=== PATIENT | female | born 1975 | race African-American/Black ===

== ENCOUNTER 2017-01-21 11:25 | Emergency (ER) | payer OTHER ==
[~2017-01-21] VITALS: Ht 162.6 cm; Wt 70.8 kg
[~2017-01-21 11:25] MED LIST: ADULT LOW DOSE81 MG PO; ALBUTEROL0.09 MG/A1 INH; ALBUTEROL0.63 MG/3 INH/SOL; AMOXIL500 MG PO; ARIPIPRAZOLE5 M1 PO; ATORVASTATIN CA80 M1 PO; CIPRO 500MG (E500 MG PO; CIPRO250 M1 PO; CYMBALTA 20 MG20 MG PO; CYMBALTA60 MG PO; FLOVENT HF0.22 MG/Ac INH; FLUTICASON0.05 MG/A2 NAS; HORIZANT600 M1 PO; MIRAPEX 0.25M0.25 MG PO; NAPROXEN D/R500 MG PO; NEURONTIN300 MG PO; PROPRANOLOL HCL10 MG PO; PYRIDIUM100 MG PO; TRAMADOL50 MG PO; TRAZODONE HCL100 M1 PO; TYLENOL #31 TAB PO; VICODIN5-300 PO; XARELTO20 M2 PO; ZOFRAN ODT4 M1 SL; ZOFRAN4 M2 PO; ZOLPIDEM TARTRA10 MG PO
[2017-01-21] MEDS ORDERED: SERTRALINE HCL100 MG PO (12:23)
[2017-01-21] MEDS ORDERED: ARIPIPRAZOLE5 M1 PO (12:23)
[2017-01-21] MEDS ORDERED: HYDROXYZINE HCL25 M2 PO (12:24)
[2017-01-21] MEDS ORDERED: HORIZANT600 M1 PO (12:24)
[2017-01-21] MEDS ORDERED: CLONIDINE HCL0.1 MG PO (12:25)
[2017-01-21] MEDS ORDERED: REXULTI PO (12:25)
--- NOTE | 2017-01-21 12:56 | ED GI/GU/ABDOMINAL COMPLAINT ---
History of Present Illness General Chief Complaint: General Adult Stated Complaint: ABD PAIN,MUSCLE SPASMS Source: patient, family Exam Limitations: no limitations Vital Signs & Intake/Output Vital Signs & Intake/Output Vital Signs Date Time Temp Pulse Resp B/P Pulse O2 O2 Flow FiO2 Ox Delivery Rate 01/21 1409 64 134/80 01/21 1409 97.0 65 18 130/89 98 Room Air 01/21 1135 96.9 62 16 124/81 98 Room Air Allergies Coded Allergies: Penicillins (Intermediate, RASH/HIVES 07/24/16) latex (ITCHING 07/24/16) Reconcile Medications Aripiprazole 5 MG TABLET 1 TAB PO DAILY MENTAL HEALTH (Reported) Aspirin (Adult Low Dose Aspirin EC) 81 MG TABLET.DR 1 TAB PO DAILY HEART HEALTH (Reported) Brexpiprazole (Rexulti) 0.5 MG TABLET 1 TAB PO DAILY MENTAL HEALTH (Reported) Clonidine HCl 0.1 MG TABLET 1 TAB PO BID PRN UNKNOWN (Reported) Gabapentin Enacarbil (Horizant) 600 MG TABLET.ER 1 TAB PO QPM UNKNOWN ( Reported) Hydroxyzine HCl 25 MG TABLET 1 TAB PO BID UNKNOWN (Reported) Rivaroxaban (Xarelto) 20 MG TABLET 1 TAB PO DAILY BLOOD THINNER (Reported) with food Sertraline HCl 100 MG TABLET 1 TAB PO DAILY MENTAL HEALTH (Reported) Triage Note: PT STATES SHE WAS HAD NAUSEA AND SHE HAS BEEN GETTING MUSCLE SPASM IN HER ARMS AND LEGS. PT STATES SHE HAD DIARRHEA LAST EVENING. PT CONT. WITH THE NAUSEA. BUT WAS NOT ABLE TO EAT TODAY. Triage Nurses Notes Reviewed? yes ? N Is pt currently ? No HPI: Patient presents with crampy bilateral lower quadrant pain since yesterday evening associated with diarrhea. The cramps are constant. There is no radiation. There are no aggravating or mitigating factors. Patient states that she is also been urinating spasms in both of her arms and legs however she states that is normal for her since she has fibromyalgia. Patient denies any fevers or chills. Patient states the pain is 7 out of 10. There is no aggravating or mitigating factors. There is no radiation. Past History Travel History Traveled to [place] past 21 day No Medical History Any Pertinent Medical History? 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 No Review of Systems Review of Systems Constitutional: Reports: no symptoms. EENTM: Reports: no symptoms. Respiratory: Reports: no symptoms. Cardiovascular: Reports: no symptoms. GI: Reports: see HPI, abdominal pain. Genitourinary: Reports: no symptoms. Musculoskeletal: Reports: no symptoms. Skin: Reports: no symptoms. Neurological/Psychological: Reports: no symptoms. Hematologic/Endocrine: Reports: no symptoms. Immunologic/Allergic: Reports: no symptoms. All Other Systems: Reviewed and Negative Physical Exam Physical Exam General Appearance: well developed/nourished, alert, awake, mild distress Head: atraumatic, normal appearance Eyes: Bilateral: PERRL, EOMI. Ears, Nose, Throat, Mouth: hearing grossly normal, moist mucous membrane Neck: normal inspection, supple, full range of motion Respiratory: normal breath sounds, chest non-tender, no respiratory distress, lungs clear Cardiovascular: regular rate/rhythm, normal peripheral pulses Gastrointestinal: normal bowel sounds, soft, no organomegaly, RLQ TENDERNESS, NO REBOUND OR GUARDING Core Measures ACS in differential dx? No Severe Sepsis Present: No Septic Shock Present: No Progress Differential Diagnosis: appendicitis, biliary colic, bowel obstruction, gastritis, hepatitis, ischemic bowel, inflamm bowel dis, intrauterine , pancreatitis Plan of Care: Orders Procedure Date/time Status MISTAKE 01/21 1344 Active EKG 01/21 1344 Active LIPASE 01/21 1257 Complete COMPREHENSIVE METABOLIC PANEL 01/21 1257 Complete CBC WITHOUT DIFFERENTIAL 01/21 1257 Complete AMYLASE 01/21 1257 Complete Laboratory Tests 01/21/17 1305: Anion Gap 8, Estimated GFR > 60, BUN/Creatinine Ratio 12.9, Glucose 93, Calcium 9.9, Total Bilirubin 0.5, AST 14, ALT 17, Alkaline Phosphatase 45, Total Protein 7.5, Albumin 4.4, Globulin 3.1, Albumin/Globulin Ratio 1.4, Amylase 60, Lipase 79, CBC w Diff MAN DIFF ORDERED, RBC 4.64, MCV 86.3, MCH 28.5, RDW 14.4, MPV 9.5 , Gran % 61.7, Lymphocytes % 29.7, Monocytes % 7.1, Eosinophils % 1.0, Basophils % 0.5, Absolute Granulocytes 3.4, Absolute Lymphocytes 1.6, Absolute Monocytes 0.4, Absolute Eosinophils 0.1, Absolute Basophils 0, Platelet Estimate VERIFIED BY SMEAR, Poikilocytosis 1+, Ovalocytes 1+, PUBS MCHC 33.0 Initial ED EKG: none Comments: On reexamination there is no right lower quadrant tenderness, rebound or guarding. Patient advised to come back to the emergency room for any further pain in the right lower quadrant. Departure Departure Disposition: HOME OR SELF CARE Condition: Stable Clinical Impression Primary Impression: Lower abdominal pain, unspecified Referrals: KELSEA TANNER MD (PCP/Family) Additional Instructions: RETRN IF SYMPTOMS WORSEN OR FOR ANY CONCERNS Departure Forms: Customer Survey General Discharge Information
[2017-01-21 13:18] LABS: ABSOLUTE BASOPHIL COUNT 0 /CUMM (0.0-0.2); ABSOLUTE EOSINOPHIL COUNT 0.1 /CUMM (0.0-0.7); ABSOLUTE GRANULOCYTE CT 3.4 /CUMM (1.4-6.5); ABSOLUTE LYMPH COUNT 1.6 /CUMM (1.2-3.4); ABSOLUTE MONOCYTE COUNT 0.4 /CUMM (0.10-0.60); BASOPHIL % 0.5 % (0.0-2.0); GRANULOCYTE % 61.7 % (42.2-75.2); HEMATOCRIT 40.1 % (37-47); MEAN CORPUSCULAR HGB 28.5 PG (27.0-31.0); MEAN CORPUSCULAR VOLUME 86.3 FL (81.0-99.0); MEAN PLATELET VOLUME 9.5 FL (7.4-10.4); PLATELET COUNT 246 /CUMM (130-400); RBC DISTRIBUTION WIDTH 14.4 % (11.5-14.5); RED BLOOD CELL CT 4.64 /CUMM (4.20-5.40); WHITE BLOOD CELL COUNT 5.6 /CUMM (4.8-10.8)
[2017-01-21 14:09] VITALS: BP 130/89
[2017-03-23] MEDS ORDERED: ALBUTEROL0.63 MG/1 INH/SOL (10:50)
[2017-03-23] MEDS ORDERED: FLOVENT DISKU100 MCG INH (10:50)
[2017-03-23] MEDS ORDERED: PROTONIX40 M3 PO (10:51)
[2017-03-23] MEDS ORDERED: SERTRALINE HCL100 MG PO (10:51)
== END 2017-01-21 14:41 ==
LOC: ERH 11:25
PROVIDERS: Emergency Medicine
DX: R10.31 Right lower quadrant pain (principal)
CPT/HCPCS: 93005; 93010; 96374; J2405

== ENCOUNTER 2017-03-20 15:56 | Emergency (ER) | payer OTHER ==
[~2017-03-20] VITALS: Ht 167.6 cm; Wt 75.8 kg
[~2017-03-20 15:56] MED LIST changes: +CLONIDINE HCL0.1 MG PO; +HYDROXYZINE HCL25 M2 PO; +REXULTI PO; +SERTRALINE HCL100 MG PO
--- NOTE | 2017-03-20 17:46 | ED GI/GU/ABDOMINAL COMPLAINT ---
History of Present Illness General Chief Complaint: Abdominal Pain/Flank Pain Stated Complaint: LOW ABD PAIN Source: patient Exam Limitations: no limitations Vital Signs & Intake/Output Vital Signs & Intake/Output Vital Signs Date Time Temp Pulse Resp B/P B/P Pulse O2 O2 Flow FiO2 Mean Ox Delivery Rate 03/20 2051 97.3 88 16 120/87 96 Room Air 03/20 1640 97.1 89 14 119/85 95 Room Air Allergies Coded Allergies: Penicillins (Intermediate, RASH/HIVES 07/24/16) latex (ITCHING 07/24/16) Reconcile Medications Aripiprazole 5 MG TABLET 1 TAB PO DAILY MENTAL HEALTH (Reported) Aspirin (Adult Low Dose Aspirin EC) 81 MG TABLET.DR 1 TAB PO DAILY HEART HEALTH (Reported) Brexpiprazole (Rexulti) 1 MG TABLET 1 TAB PO DAILY MENTAL HEALTH (Reported) Clonidine HCl 0.1 MG TABLET 1 TAB PO BID PRN UNKNOWN (Reported) Gabapentin Enacarbil (Horizant) 600 MG TABLET.ER 1 TAB PO QPM UNKNOWN ( Reported) Hydroxyzine HCl 25 MG TABLET 1 TAB PO BID UNKNOWN (Reported) Oxycodone HCl/Acetaminophen (Percocet 5-325 MG Tablet) 5 MG-325 MG TABLET 1 TAB PO BID PRN pain Rivaroxaban (Xarelto) 20 MG TABLET 1 TAB PO DAILY BLOOD THINNER (Reported) with food Trazodone HCl 100 MG TABLET 1 TAB PO QPM MENTAL HEALTH (Reported) Triage Note: PT TO ED FOR ABD CRAMPING, NAUSEA SINCE YESTERDAY. DENIES DIARRHEA, LNBM YESTERDAY. Triage Nurses Notes Reviewed? yes ? n Is pt currently ? No Onset: Gradual Duration: worse persistent since (4 months) Timing: recent history Quality/Severity: cramping, severe Severity Numbers: 9 Location: left lower quadrant, right lower quadrant Radiation: no radiation Activities at Onset: none Prior Abdominal Problems: similar symptoms No Modifying Factors: none Associated Symptoms: n/v HPI: Patient is a 41-year-old female with history of endometriosis, endometrial ablation approximately 6 months ago presenting to the emergency department with chief complaint of worsening abdominal cramping over the past 2-3 days. She reports that she's had cramping since the procedure was done in October but over the past several days things got worse. Positive nausea but no vomiting. Denies fevers or chills. Denies urinary frequency urgency or dysuria. Denies any vaginal discharge. Her last normal menstrual period was 2 months ago. Denies any back pain. No chest pain or palpitations. She's been taking Tylenol [id number] without relief in symptoms. (EVARISTO MIN) Past History Travel History Traveled to [place] past 21 day No Medical History Any Pertinent Medical History? 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 No (EVARISTO MIN) Review of Systems Review of Systems Constitutional: Reports: no symptoms. Comments Review of systems: See HPI, All other systems negative. Constitutional, no weight loss HEENT: No visual changes no sore throat no congestion Cardiovascular: No chest pain ,palpitation , orthopnea or ankle swelling Skin, no jaundice no rashes Respiratory: No dyspnea cough sputum or hemoptysis GI: No diarrhea : No dysuria No hematuria Muscle skeletal: no back pain, no neck pain, Neurologic: No numbness no confusion Psych: No stress anxiety or depression,. Heme/endocrine: No bruising no bleeding no polyuria or polydipsia Immunology: No splenectomy or history of AIDS (EVARISTO MIN) Physical Exam Physical Exam General Appearance: well developed/nourished, no apparent distress, alert, awake , mild distress Gastrointestinal: normal bowel sounds, soft, tenderness Comments: Well-developed well-nourished person in mild distress HEENT: Pupils equally round and reactive to light and accommodation. Nose is atraumatic. External auditory canal and Tympanic membranes clear. Pharynx normal. No swelling or edema. Neck: normal inspection Back: Nontender, no CVA tenderness. Cardiovascular: Regular rate and rhythms no murmurs rubs or gallops, normal JVP Respiratory: Chest nontender. No respiratory distress.breath sounds clear to auscultation bilaterally Abdomen: Soft, tender to palpation in the lower quadrant bilaterally as well as the epigastric region, nondistended, no appreciable organomegaly. Normal bowel sounds. No ascites Extremity: No edema Neuro: Alert oriented x3 Skin: No appreciable rash on exposed skin, skin is warm and dry. Psych: Mood and affect is normal, memory and judgment is normal. Core Measures ACS in differential dx? No Severe Sepsis Present: No Septic Shock Present: No (BARB KAUR,EVARISTO) Progress Differential Diagnosis: appendicitis, diverticulitis, endometritis, gastritis, ischemic bowel, ovarian cyst, ovarian torsion, pancreatitis, UTI/pyelo Plan of Care: Orders Procedure Date/time Status Add-on Test (ER Only) 03/20 182 Active LIPASE 03/20 175 Complete LACTIC ACID 03/20 175 Complete AMYLASE 03/20 175 Complete URINALYSIS 03/20 164 Complete COMPREHENSIVE METABOLIC PANEL 03/20 164 Complete CBC WITHOUT DIFFERENTIAL 03/20 164 Complete Laboratory Tests 03/20/17 1750: Anion Gap 15, Estimated GFR > 60, BUN/Creatinine Ratio 12.5, Glucose 97, Lactic Acid 1.2, Calcium 9.4, Total Bilirubin 0.5, AST 18, ALT 35, Alkaline Phosphatase 54, Total Protein 7.8, Albumin 4.6, Globulin 3.2, Albumin/Globulin Ratio 1.4, Amylase 63, Lipase 57, CBC w Diff NO MAN DIFF REQ, RBC 4.63, MCV 87.1, MCH 28.6, RDW 14.9 H, MPV 9.1, Gran % 88.6 H, Lymphocytes % 8.5 L, Monocytes % 2.5, Eosinophils % 0.2, Basophils % 0.2, Absolute Granulocytes 9.4 H, Absolute Lymphocytes 0.9 L, Absolute Monocytes 0.3, Absolute Eosinophils 0, Absolute Basophils 0, PUBS MCHC 32.8 L 03/20/17 1702: Urine Color YEL, Urine Clarity CLEAR, Urine pH 6.5, Ur Specific Aurora >= 1.030 , Urine Protein 30 H, Urine Ketones TRACE H, Urine Nitrite NEG, Urine Bilirubin NEG, Urine Urobilinogen 0.2, Ur Leukocyte Esterase NEG, Ur Microscopic SEDIMENT EXAMINED, Urine RBC RARE, Urine WBC 1-3 H, Ur Epithelial Cells MOD H, Urine Bacteria MANY H, Urine Mucus MANY H, Urine Hemoglobin NEG, Urine Glucose NEG Diagnostic Imaging: Viewed by Me: CT Scan. Discussed w/RAD: CT Scan. Radiology Impression: PATIENT: OLYA BULLOCK PRESENT AGE: 41 PATIENT ACCOUNT NO: [id number] : 77 LOCATION: [facility] ORDERING PHYSICIAN: EVARISTO KAUR SERVICE DATE: 03/20/17 EXAM TYPE: CAT - CT ABD & PELVIS W IV CONTRAST EXAMINATION: CT ABDOMEN AND PELVIS WITH CONTRAST CLINICAL INFORMATION: Lower abdominal pain COMPARISON: 10/25/2012 TECHNIQUE: Multidetector volumetric imaging was performed of the abdomen and pelvis before and after the IV administration of 94 mL of Optiray 320 intravenous contrast. Sagittal and coronal reformatted images were obtained on the technologist's workstation. DLP: 250.09 mGy-cm FINDINGS: LUNG BASES: The visualized lung bases are unremarkable. LIVER, GALLBLADDER, AND BILIARY TREE: The liver is normal in size, shape, and attenuation. No focal hepatic lesion or biliary ductal dilatation is present. The gallbladder is unremarkable with no evidence of radiopaque gallstones, gallbladder wall thickening, or obvious pericholecystic inflammatory changes. PANCREAS: Unremarkable. SPLEEN: Unremarkable. ADRENAL GLANDS: Unremarkable. KIDNEYS AND URETERS: The kidneys are normal in size, shape, and attenuation. No hydronephrosis, hydroureter, or calculi seen. No perinephric stranding. BLADDER: Unremarkable. GASTROINTESTINAL TRACT: The stomach, duodenum small and large bowel are unremarkable. The appendix is visualized and within normal limits. ABDOMINAL WALL: No significant hernia is appreciated. LYMPH NODES: Normal. VASCULAR: Unremarkable. PELVIC VISCERA: There is a 15 mm right ovarian cystic structure, can represent a dominant follicle. There is a 2.4 cm enhancing mass adjacent to the left side of body of uterus, can correlate with the uterine fibroid seen on the comparison pelvic ultrasound. The finding is better seen on axial image 67 from series 2 and coronal image 47. Thickening of the endometrial lining, up to 15 mm noted, could be physiologic. Correlation with menstrual cycle date is suggested. Slight heterogeneity of the myometrial enhancement also seen, could represent some fibromatous changes. Trace amount of pelvic free fluid also seen. OSSEOUS STRUCTURES: Unremarkable. IMPRESSION: 1. No CT evidence of acute appendicitis or hydronephrosis. 2. A 2.4 cm uterine fibroid. 3. A 15 mm right ovarian dominant follicle, trace pelvic free fluid, and mildly thickened endometrial lining, can be physiologic. Clinical correlation is suggested. DICTATED BY: PRIYA OCONNELL MD DATE/TIME DICTATED:03/20/172009 LINING SEWER:RADHA DATE/TIME TRANSCRIBED:03/20/172009 CONFIDENTIAL, DO NOT COPY WITHOUT APPROPRIATE AUTHORIZATION. <Electronically signed in Other Vendor System> SIGNED BY: PRIYA OCONNELL MD 03/20/172022 Initial ED EKG: none Comments: Patient feeling much better after fluids and morphine. She was informed of all lab work results and imaging study results. She'll follow with her PHYSICAL SECURITY SPECIALIST. There is a fibroid and ovarian cyst noted on CT scan. She is an appointment with OB this coming week. She'll return for any worsening symptoms or concerns. (EVARISTO MIN) Departure Departure Time of Disposition: 2031 Disposition: HOME OR SELF CARE Condition: Stable Clinical Impression Primary Impression: Ovarian cyst Secondary Impressions: Fibroid Qualifiers: Uterine leiomyoma location: unspecified location Qualified Code: D25.9 - Leiomyoma of uterus, unspecified Referrals: KELSEA TANNER MD (PCP/Family) RED RUBIN MD Additional Instructions: Follow-up with PHYSICAL SECURITY SPECIALIST call to make an appointment. Increase fluids. Return for worsening symptoms or concerns. Departure Forms: Customer Survey General Discharge Information Prescriptions: Current Visit Scripts Oxycodone HCl/Acetaminophen (Percocet 5-325 MG Tablet) 1 TAB PO BID PRN pain #10 TAB (EVARISTO MNI) PA/ENGRAVER TIRE MOLD Co-Sign Statement Statement: ED Attending supervision documentation- [] I saw and evaluated the patient. I have also reviewed all the pertinent lab results and diagnostic results. I agree with the findings and the plan of care as documented in the PA's/ENGRAVER TIRE MOLD's documentation. [X] I have reviewed the ED Record and agree with the PA's/ENGRAVER TIRE MOLD's documentation. [] Additions or exceptions (if any) to the PAs/ENGRAVER TIRE MOLD's note and plan are summarized below: [] (ASHANTI ADORNO,YONY)
[2017-03-20 18:02] LABS: ABSOLUTE BASOPHIL COUNT 0 /CUMM (0.0-0.2); ABSOLUTE EOSINOPHIL COUNT 0 /CUMM (0.0-0.7); ABSOLUTE GRANULOCYTE CT 9.4 /CUMM (1.4-6.5); ABSOLUTE LYMPH COUNT 0.9 /CUMM (1.2-3.4); ABSOLUTE MONOCYTE COUNT 0.3 /CUMM (0.10-0.60); BASOPHIL % 0.2 % (0.0-2.0); EOSINOPHIL % 0.2 % (0-5); HEMATOCRIT 40.3 % (37-47); MEAN CORPUSCULAR HGB 28.6 PG (27.0-31.0); MEAN CORPUSCULAR HGB CONC 32.8 G/DL (33.0-37.0); MEAN CORPUSCULAR VOLUME 87.1 FL (81.0-99.0); MEAN PLATELET VOLUME 9.1 FL (7.4-10.4); PLATELET COUNT 276 /CUMM (130-400); RBC DISTRIBUTION WIDTH 14.9 % (11.5-14.5); RED BLOOD CELL CT 4.63 /CUMM (4.20-5.40); WHITE BLOOD CELL COUNT 10.6 /CUMM (4.8-10.8)
[2017-03-20] MEDS ORDERED: REXULTI1 MG PO (18:04)
[2017-03-20] MEDS ORDERED: TRAZODONE HCL100 M1 PO (18:05)
[2017-03-20 18:27] LABS: GRANULOCYTE % 88.6 % (42.2-75.2)
--- NOTE | 2017-03-20 20:23 | CT SCAN REPORT ---
EXAMINATION: CT ABDOMEN AND PELVIS WITH CONTRAST CLINICAL INFORMATION: Lower abdominal pain COMPARISON: 10/25/2012 TECHNIQUE: Multidetector volumetric imaging was performed of the abdomen and pelvis before and after the IV administration of 94 mL of Optiray 320 intravenous contrast. Sagittal and coronal reformatted images were obtained on the technologist's workstation. DLP: 250.09 mGy-cm FINDINGS: LUNG BASES: The visualized lung bases are unremarkable. LIVER, GALLBLADDER, AND BILIARY TREE: The liver is normal in size, shape, and attenuation. No focal hepatic lesion or biliary ductal dilatation is present. The gallbladder is unremarkable with no evidence of radiopaque gallstones, gallbladder wall thickening, or obvious pericholecystic inflammatory changes. PANCREAS: Unremarkable. SPLEEN: Unremarkable. ADRENAL GLANDS: Unremarkable. KIDNEYS AND URETERS: The kidneys are normal in size, shape, and attenuation. No hydronephrosis, hydroureter, or calculi seen. No perinephric stranding. BLADDER: Unremarkable. GASTROINTESTINAL TRACT: The stomach, duodenum small and large bowel are unremarkable. The appendix is visualized and within normal limits. ABDOMINAL WALL: No significant hernia is appreciated. LYMPH NODES: Normal. VASCULAR: Unremarkable. PELVIC VISCERA: There is a 15 mm right ovarian cystic structure, can represent a dominant follicle. There is a 2.4 cm enhancing mass adjacent to the left side of body of uterus, can correlate with the uterine fibroid seen on the comparison pelvic ultrasound. The finding is better seen on axial image 67 from series 2 and coronal image 47. Thickening of the endometrial lining, up to 15 mm noted, could be physiologic. Correlation with menstrual cycle date is suggested. Slight heterogeneity of the myometrial enhancement also seen, could represent some fibromatous changes. Trace amount of pelvic free fluid also seen. OSSEOUS STRUCTURES: Unremarkable. IMPRESSION: 1. No CT evidence of acute appendicitis or hydronephrosis. 2. A 2.4 cm uterine fibroid. 3. A 15 mm right ovarian dominant follicle, trace pelvic free fluid, and mildly thickened endometrial lining, can be physiologic. Clinical correlation is suggested.
[2017-03-20] MEDS ORDERED: PERCOCET 5-3251 EACH PO (20:40)
[2017-03-20 20:51] VITALS: BP 120/87
[2017-03-21] MEDS ORDERED: ZOFRAN ODT4 M1 SL (18:54)
[2017-03-21] MEDS ORDERED: DILAUDID2 M1 PO (18:54)
[2017-03-23] MEDS ORDERED: FLOVENT DISKU100 MCG INH (10:50)
[2017-03-23] MEDS ORDERED: ALBUTEROL0.63 MG/1 INH/SOL (10:50)
[2017-03-23] MEDS ORDERED: PROTONIX40 M3 PO (10:51)
[2017-03-23] MEDS ORDERED: SERTRALINE HCL100 MG PO (10:51)
== END 2017-03-20 20:53 ==
LOC: ERH 15:56
PROVIDERS: Emergency Medicine
DX: N83.201 Unspecified ovarian cyst, right side (principal); D25.9 Leiomyoma of uterus, unspecified
CPT/HCPCS: 74177; 81001; 96374; 96375; J2405

== ENCOUNTER 2017-03-21 16:46 | Observation (INO) | payer OTHER ==
[~2017-03-21] VITALS: Ht 162.6 cm; Wt 70.8 kg
[~2017-03-21 16:46] MED LIST changes: +PERCOCET 5-3251 EACH PO; +REXULTI1 MG PO
--- NOTE | 2017-03-21 16:54 | NUR ---
PT HERE WITH C/O WORSENING ABD PAIN SEE YESTERDAY FOR SAME AND HAD CT OF HER ABD DONE.
--- NOTE | 2017-03-21 17:14 | NUR ---
PT VIA WHEELCHAIR TO RM 7. PT RIGHT SIDE LYING ON STRETCHER IN POSITION. DR CEDENO AT BEDSIDE
--- NOTE | 2017-03-21 17:41 | ED GI/GU/ABDOMINAL COMPLAINT ---
See Addendum History of Present Illness General Chief Complaint: Abdominal Pain/Flank Pain Stated Complaint: WORSENING ABD PAIN,SEEN YESTERDAY FOR SAME Source: patient, family, old records Exam Limitations: no limitations Vital Signs & Intake/Output Vital Signs & Intake/Output Vital Signs Date Time Temp Pulse Resp B/P B/P Pulse O2 O2 Flow FiO2 Mean Ox Delivery Rate 03/21 2230 97.3 82 16 126/82 98 Room Air 03/21 2041 97.6 88 17 128/78 97 Room Air 03/21 1654 97.8 74 16 124/84 96 Room Air ED Intake and Output 03/22 0000 03/21 1200 Intake Total Output Total Balance Patient 156 lb Weight Weight Reported by Patient Measurement Method Allergies Coded Allergies: Penicillins (Intermediate, RASH/HIVES 07/24/16) latex (ITCHING 07/24/16) Reconcile Medications Aripiprazole 5 MG TABLET 1 TAB PO DAILY MENTAL HEALTH (Reported) Aspirin (Adult Low Dose Aspirin EC) 81 MG TABLET.DR 1 TAB PO DAILY HEART HEALTH (Reported) Brexpiprazole (Rexulti) 1 MG TABLET 1 TAB PO DAILY MENTAL HEALTH (Reported) Clonidine HCl 0.1 MG TABLET 1 TAB PO BID PRN UNKNOWN (Reported) Gabapentin Enacarbil (Horizant) 600 MG TABLET.ER 1 TAB PO QPM UNKNOWN ( Reported) Hydromorphone HCl (Dilaudid) 2 MG TABLET 1-2 TAB PO Q6P severe pain Hydroxyzine HCl 25 MG TABLET 1 TAB PO BID UNKNOWN (Reported) Ondansetron (Zofran Odt) 4 MG TAB.RAPDIS 1 TAB SL TID PRN nausea Oxycodone HCl/Acetaminophen (Percocet 5-325 MG Tablet) 5 MG-325 MG TABLET 1 TAB PO BID PRN pain Rivaroxaban (Xarelto) 20 MG TABLET 1 TAB PO DAILY BLOOD THINNER (Reported) with food Trazodone HCl 100 MG TABLET 1 TAB PO QPM MENTAL HEALTH (Reported) Triage Note: PT HERE WITH C/O WORSENING ABD PAIN SEE YESTERDAY FOR SAME AND HAD CT OF HER ABD DONE. Triage Nurses Notes Reviewed? yes LMP (ages 10-50): unknown ? n Is pt currently ? No Onset: Just prior to arrival Duration: hour(s):, constant, continues in ED, getting worse Timing: recent history Quality/Severity: aching, cramping, severe Location: right lower quadrant, suprapubic Radiation: no radiation Activities at Onset: rest Prior Abdominal Problems: similar symptoms Past Sexual History: Unobtainable at this time No Modifying Factors: none Associated Symptoms: abdominal pain, loss of appetite, nausea/vomiting HPI: 2 days prior to admission patient complains of right lower quadrant and periumbilical pain described as sharp severe nonradiating associated with nausea vomiting. She was seen in the emergency department yesterday diagnosed with fibroid uterus and right ovarian cyst. She presents with poorly controlled pain with Percocet. She denies fever chills chest pain cough shortness of breath headache dysuria rash bleeding. (PRICE CEDENO MD) Past History Travel History Traveled to [place] past 21 day No Medical History Any Pertinent Medical History? see below for history Neurological: FIBROMYALGIA STROKE EENT: NONE Cardiovascular: NONE Respiratory: asthma Gastrointestinal: NONE Hepatic: NONE Renal: NONE Musculoskeletal: chronic back pain Psychiatric: depression, ANXIETY Endocrine: NONE Blood Disorders: NONE Cancer(s): NONE NURSING TECHN/Reproductive: yeast infections, OVARIAN CYST utiS Other Medical Hx: Fibromyalgia History of MRSA: No Surgical History Surgical History: tubal ligation, laparoscopy LEEP D and c Novasure ablation Psychosocial History Who do you live with Family What is your primary language Filipino Tobacco Use: Never used ETOH Use: occasional use Illicit Drug Use: denies illicit drug use Family History Hx Contributory? No (PRICE CEDENO MD) Review of Systems Review of Systems Constitutional: Reports: no symptoms. EENTM: Reports: no symptoms. Respiratory: Reports: no symptoms. Cardiovascular: Reports: no symptoms. GI: Reports: see HPI, abdominal pain. Genitourinary: Reports: see HPI, pain. Musculoskeletal: Reports: no symptoms. Skin: Reports: no symptoms. Neurological/Psychological: Reports: no symptoms. Hematologic/Endocrine: Reports: no symptoms. Immunologic/Allergic: Reports: no symptoms. All Other Systems: Reviewed and Negative (PRICE CEDENO MD) Physical Exam Physical Exam General Appearance: well developed/nourished, alert, awake, anxious, severe distress, obese Head: atraumatic, normal appearance Eyes: Bilateral: normal appearance, PERRL, EOMI, normal inspection. Ears, Nose, Throat, Mouth: hearing grossly normal, moist mucous membrane Neck: normal inspection, supple, full range of motion, normal alignment Respiratory: normal breath sounds, chest non-tender, no respiratory distress, quiet respiration, lungs clear Cardiovascular: regular rate/rhythm, normal peripheral pulses, norml femoral pulses equa Peripheral Pulses: 4+ carotid (R), 4+ carotid (L) Gastrointestinal: normal bowel sounds, soft, tenderness (periumbilical) Back: normal inspection, normal range of motion, no vertebral tenderness Extremities: normal range of motion, no ligament instability Neurologic/Psych: no motor/sensory deficits, awake, alert, oriented x 3, normal gait, normal mood/affect, roustabout pusher II-XII nml as tested Skin: intact, normal color Core Measures ACS in differential dx? No Severe Sepsis Present: No Septic Shock Present: No (WILIAN ADORNO,PRICE) Progress Differential Diagnosis: ectopic , ovarian cyst, ovarian torsion Plan of Care: Orders Procedure Date/time Status Nothing by Mouth 03/23 B Active Nothing by Mouth 03/22 B Active CBC WITHOUT DIFFERENTIAL 03/22 06 Active Pathway - chart 03/22 14 Active House Staff 03/22 0014 Active Patient Data 03/22 0014 Active Code Status 03/22 0014 Active VTE Mechanical Prophylaxis 03/22 UNK Active Saline Lock 03/21 235 Active Misc Message 03/21 235 Active ED Holding Orders 03/21 235 Active Vital Signs 03/21 235 Active Code Status 03/21 235 Complete Patient Data 03/[address] in observation 03/21 2345 Active Intake & Output 03/21 1806 Active HUMAN BETA HCG SCREEN 03/21 1733 Complete Current Medications Sig/Lionel Start time Last Medication Dose Stop Time Status Admin Albuterol Sulfate 2 PUF Q4 HRS NEEDED PRN 03/22 2345 AC (Ventolin) Trazodone HCl 50 MG AT BEDTIME 03/22 2200 AC (Desyrel) Gabapentin 600 MG DAILY 03/22 1000 AC (Neurontin) Sertraline HCl 100 MG DAILY 03/22 1000 AC (Zoloft) Clonidine 0.1 MG 0803/22 08 AC (Catapres) Ondansetron HCl 4 MG Q6-PRN PRN 03/22 0100 AC (Zofran) Sodium Chloride 1,000 ML .Q10H 03/22 0100 AC (Normal Saline 0.9%) Hydromorphone HCl 1 MG Q4P PRN 03/22 0015 AC (Dilaudid) Ketorolac 30 MG Q6 03/22 0006 AC Tromethamine (Toradol) Laboratory Tests 03/21/17 1758: Total Beta HCG NEGATIVE Radiology Impression: no acute abnormality (TVUS pending) Initial ED EKG: none Hand-Off Endorsed To: EVENS IMCHELE MD Endorsed Time: 1899 Pending: ultrasound (PRICE CEDENO MD) Departure Departure Disposition: HOME OR SELF CARE Condition: Stable Clinical Impression Primary Impression: Ovarian cyst Secondary Impressions: Fibroid uterus Qualifiers: Uterine leiomyoma location: unspecified location Qualified Code: D25.9 - Leiomyoma of uterus, unspecified Referrals: KELSEA TANNER MD (PCP/Family) Additional Instructions: Follow up with your sharepoint solutions architect Departure Forms: Customer Survey General Discharge Information Prescriptions: Current Visit Scripts Hydromorphone HCl (Dilaudid) 1-2 TAB PO Q6P #20 TAB Ondansetron (Zofran Odt) 1 TAB SL TID PRN nausea #10 TAB (PRICE CEDENO MD) Departure Comments 03/21/17, 21:06... discussed with radiologist... u/s is equivocal for torsion...pt with mild-moderate tenderness to rlq to my exam... discussed with implementation advisor who will evaluate patient. pt to be placed in observation for re-evaluation... see below. Observation Note Spoke With: BENJAMIN SAAVEDRA MD Physician Advisor Notified: BIBI ADORNO,GOLDIE [facility] Patient In: Non-ED OBS Care Area Rationale for Observation: My rational for observation is as follows . pt with equivocal finding on trans vag u/s for ovarian torsion.... pt to have serial exams and re-eval in AM by implementation advisor. (EVENS MICHELE MD) Critical Care Note Critical Care Note Critical Care Time: 30-74 min (EVENS MICHELE MD)
--- NOTE | 2017-03-21 18:45 | NUR ---
PT TO US VIA STRETCHER
[2017-03-21] MEDS ORDERED: ZOFRAN ODT4 M1 SL (18:54)
[2017-03-21] MEDS ORDERED: DILAUDID2 M1 PO (18:54)
--- NOTE | 2017-03-21 19:33 | NUR ---
PT NOW BACK FROM U/S. PENDING RESULT.
--- NOTE | 2017-03-21 20:14 | ULTRASOUND REPORT ---
EXAMINATION: ULTRASOUND PELVIS COMPLETE CLINICAL INFORMATION: Right lower quadrant and suprapubic pain with fibroid identified on CT. LMP 03/01/2017. COMPARISON: CT abdomen and pelvis with contrast 03/20/2017. Pelvic ultrasound 10/25/2012. TECHNIQUE: Real-time sonographic imaging of the uterus and bilateral adnexa via transabdominal and transvaginal approach. FINDINGS: The uterus is anteverted and measures 9.0 x 5.4 x 7.0 cm in sagittal, AP and transverse dimensions respectively, corresponding to a volume of 179 mL. Redemonstrated is a 3.4 x 3.6 x 3.1 cm fibroid within the right posterolateral aspect of the uterine fundus; previously, 3.0 x 2.8 x 2.9 cm (pelvic ultrasound 10/25/2012). There is an additional adjacent uterine fibroid within the upper uterine body measuring 1.6 x 1.1 x 1.8 cm; previously, 2.1 x 1.7 x 1.6 cm. The cervical length is 2.9 cm. The endometrial stripe measures 1.5 cm in thickness. No uterine fibroids are identified. The bilateral ovaries are visualized. There is asymmetric enlargement of the right ovary. The right ovary measures 4.1 x 1.5 x 2.3 cm, corresponding to a volume of 7.1 mL. The left ovary measures 2.9 x 1.9 x 2.2 cm, corresponding to a volume of 6.4 mL. Flow is demonstrated within the bilateral ovaries although Doppler flow was more difficult to fern picker within the right ovary. Minimal free pelvic fluid. IMPRESSION: 1. Asymmetric enlargement of the right ovary. The bilateral ovaries are visualized. Arterial and venous flow are demonstrated within the bilateral ovaries, although flow within the right ovary was more difficult to ascertain and less robust relative to the left ovary. Cannot exclude possible torsion/detorsion of the right ovary. Recommend gynecological consultation. 2. Uterine fibroids, as described above. This critical result was discussed with Dr. Myron Galvez at 8:10 PM on 03/21/2017 and it was ascertained that the content and urgency of the report was understood at the time of direct communication.
--- NOTE | 2017-03-21 20:52 | NUR ---
DR TARIQ PAGED PER ATTENDING.
--- NOTE | 2017-03-21 21:40 | NUR ---
OBGYN AT BEDSIDE.
--- NOTE | 2017-03-21 22:29 | NUR ---
PT TO BE ADMITTED UNDER OBSERVATION PER ATTENDING.
--- NOTE | 2017-03-22 00:22 | History & Physical ---
General Information and HPI MD Statement: I have seen and personally examined OLYA BULLOCK and documented this H&P. The patient is a 41 year old female who presented with a chief complaint of abdomino/pelvic pain. Source of Information: patient History of Present Illness: Patient describes pain has been happening on and off for the past few weeks. However Wednesday afternoon it suddenly became worse and constant. She presented to the ED and CT scan at time was negative and she was sent home with pain medications. She describes pain was controlled overnight, however Wednesday morning the pain again became severe. She attempted to take percocet x2 with no alleviation. She decided to return to the Ed for further care. Describes the pain is located in the lower abdomen/pelvic area. Bilateral shooting pain down to pelvic region with constant pulling/twisting pain in the mid lower area with occasional radiation to the right side. She describes having some nausea associated with this pain. Denies urinary or bowel symptoms. Denies any fevers or chills. Denies being hungry at this time. Had ablation done in September and has had lessing periods since then and now only spotting occasional. Difficult to determine LMP due to this. Allergies/Medications Allergies: Coded Allergies: Penicillins (Intermediate, RASH/HIVES 07/24/16) latex (ITCHING 07/24/16) Home Med list Aripiprazole 5 MG TABLET 1 TAB PO DAILY MENTAL HEALTH (Reported) Aspirin (Adult Low Dose Aspirin EC) 81 MG TABLET.DR 1 TAB PO DAILY HEART HEALTH (Reported) Brexpiprazole (Rexulti) 1 MG TABLET 1 TAB PO DAILY MENTAL HEALTH (Reported) Clonidine HCl 0.1 MG TABLET 1 TAB PO BID PRN UNKNOWN (Reported) Gabapentin Enacarbil (Horizant) 600 MG TABLET.ER 1 TAB PO QPM UNKNOWN ( Reported) Hydromorphone HCl (Dilaudid) 2 MG TABLET 1-2 TAB PO Q6P severe pain Hydroxyzine HCl 25 MG TABLET 1 TAB PO BID UNKNOWN (Reported) Ondansetron (Zofran Odt) 4 MG TAB.RAPDIS 1 TAB SL TID PRN nausea Oxycodone HCl/Acetaminophen (Percocet 5-325 MG Tablet) 5 MG-325 MG TABLET 1 TAB PO BID PRN pain Rivaroxaban (Xarelto) 20 MG TABLET 1 TAB PO DAILY BLOOD THINNER (Reported) with food Trazodone HCl 100 MG TABLET 1 TAB PO QPM MENTAL HEALTH (Reported) 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: 2 Last Menstrual Period: unknown due to ablation 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 History: non-contributory Medical History Neurological: FIBROMYALGIA STROKE EENT: NONE Cardiovascular: NONE Respiratory: asthma Gastrointestinal: NONE Hepatic: NONE Renal: NONE Musculoskeletal: chronic back pain Psychiatric: depression, ANXIETY Endocrine: NONE Blood Disorders: NONE Cancer(s): NONE 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 SEPARATOR/Reproductive: yeast infections, OVARIAN CYST utiS Other Medical Hx: Fibromyalgia Surgical History Pertinent Surgical History: tubal ligation, laparoscopy LEEP D and c Novasure ablation, ablation Past Family/Social History Psychosocial History ETOH Use: occasional use Illicit Drug Use: denies illicit drug use Review of Systems Review of Systems: per HPI, otherwise noncontributory Exam & Diagnostic Data Last 24 Hrs of Vital Signs/I&O Vital Signs Date Time Temp Pulse Resp B/P B/P Pulse O2 O2 Flow FiO2 Mean Ox Delivery Rate 03/21 2230 97.3 82 16 126/82 98 Room Air 03/21 2041 97.6 88 17 128/78 97 Room Air 03/21 1654 97.8 74 16 124/84 96 Room Air Intake & Output 03/22 0800 05/08 0000 03/21 1600 Intake Total Output Total Balance Patient 70.76 kg Weight Weight Reported by Patient Measurement Method Obstetric Exam Wgt Gained During : N/A Pelvimetry: N/A Dilation (cm): 0 (N/A) Effacement (%): 0 (N/A) Station: 0 (N/A) Membranes: unknown (N/A) Fluid: N/A Fundal Height (cm): 0 (N/A) Multiple Gestation? No Contractions: N/A Patient for Induction? No (N/A) Physical Exam: NAD RRR S1 and S2 CTAB Abd: Minimal TTP in lower abdomen. no rebound. Good BS Pelvic: Bimanual revealed generalized tennderness in pelvic area. No CMT, no mass palpated. Labs Blood Type & Rh: N/A Antibody Screen: N/A Hct/Hgb & Platelets #1: N/A Hct/Hgb & Platelets #2: N/A Rubella: N/A VDRL #1: N/A VDRL #2: N/A HbsAg: N/A HIV #1: N/A HIV #2 N/A 1 Hr PG: N/A Group B Strep: N/A Initial Ultrasound: N/A Anatomy Ultrasound: N/A Genetic Testing: N/A Last 24 Hrs of Labs/Douglas: Laboratory Tests 03/21/17 1758: Total Beta HCG NEGATIVE ITS Data Other Results See pelvic ultrasound report (reviewed) Assessment/Plan Assessment/Plan: 41 yo female with pelvic pain Unknown etiolody at this time. Suspect possible ovarian torsion given acute onset with resolution in between and ultrasound with difficult seeing flow in right ovary (though present). Small cyst liklely corpus luteum and of normal size. 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 Possible fibroid degeneration, though unlikely given normal uterine ultrasound. No evidence of PID, though still possible on differential. Due to unknown nature, will admit to observation for pain control. Orders placed. Will start toradol scheduled with breakthrough dilaudid. Will speak with oncoming doctor in AM (Dr. Camarillo) to discuss case. If pain worsens or does not improve, would consider doing Dx Laparoscopy for further assistance in diagnosis. This was discussed with patient who voiced understanding. NPO overnight with IVF Asthma - Albuterol ordered PRN. Fibromyalgia - Home meds ordered. Rexultin not on formulary. Will hold off on that medication for now. Will continue to monitor. No acute issues Depression/Anxiety - Home meds ordered. No acute issues Hx of Stroke - Takes Aspirin and Xarelto at home. Will hold on these two meds for now given possiblity of need for sugery pending further evaluation. If no surgery, will restart. As Ranked By This Provider Problem List: 1. Pelvic pain 2. Asthma 3. Fibromyalgia Core Measures/Miscellaneous Venous Thromboembolism VTE Risk Factors: Previous VTE VTE Contraindications: No Contraindications VTE Diagnosis: Yes Beta Rola Is Beta Rola a Home Med? No Antibiotics Is Patient on Antibiotics? No
--- NOTE | 2017-03-22 01:09 | NUR ---
IV NS AT 100 ML/HR MEDICATED WITH TORADOL AND ZOFRAN
--- NOTE | 2017-03-22 01:36 | NUR ---
NURSING QUALITY CONTROL MANAGER AT BEDSIDE FOR OBS PAPERWORK. PATIENT TO BE INPATIENT OBS HOLD IN ER OVERNIGHT. HOSPITAL BED BEING PROVIDED.
--- NOTE | 2017-03-22 01:50 | NUR ---
PATIENT PLACED ON A HOSPITAL BED AT THIS TIME, ABLE TO STAND W/O ASSIST AND REPOSITION SELF W/O ASSIST. LIGHTS DIMMED PER REQUEST, CALL ORO IN REACH.
--- NOTE | 2017-03-22 03:34 | NUR ---
IPOC INITIATED AND UTD. PATIENT SLEEPING ON HOSPITAL BED AT THIS TIME, NOTED TO BE SELF TURNING AND REPOSITIONING.
--- NOTE | 2017-03-22 06:26 | NUR ---
AWOKE PATIENT FROM SOUND SLEEP. PATIENT REPORTS CURRENTLY PAIN FREE. PATIENT VSS. AM BLOODOWORK IN PROGRESS.
[2017-03-22 06:47] LABS: ABSOLUTE BASOPHIL COUNT 0 /CUMM (0.0-0.2); ABSOLUTE EOSINOPHIL COUNT 0.2 /CUMM (0.0-0.7); RBC DISTRIBUTION WIDTH 14.8 % (11.5-14.5)
[2017-03-22 06:57] LABS: ABSOLUTE GRANULOCYTE CT 3.1 /CUMM (1.4-6.5); ABSOLUTE LYMPH COUNT 2.1 /CUMM (1.2-3.4); ABSOLUTE MONOCYTE COUNT 0.5 /CUMM (0.10-0.60); BASOPHIL % 0.8 % (0.0-2.0); EOSINOPHIL % 2.6 % (0-5); GRANULOCYTE % 52.8 % (42.2-75.2); MEAN CORPUSCULAR HGB 28.8 PG (27.0-31.0); MEAN CORPUSCULAR HGB CONC 32.8 G/DL (33.0-37.0); MEAN CORPUSCULAR VOLUME 87.7 FL (81.0-99.0); MEAN PLATELET VOLUME 8.9 FL (7.4-10.4); PLATELET COUNT 239 /CUMM (130-400); RED BLOOD CELL CT 4.02 /CUMM (4.20-5.40); WHITE BLOOD CELL COUNT 5.8 /CUMM (4.8-10.8)
[2017-03-22 07:02] LABS: HEMATOCRIT 35.3 % (37-47)
--- NOTE | 2017-03-22 07:07 | NUR ---
CRITICAL TEST RESULTS [id number] OLYA BULLOCK 41 F TESTS AND RESULTS: HCT 35.3 Results received and read back by: DONNA LAMBERT Results received date and time: 03/22/17 0707 The following provider was notified of the results, and read the results back: HOUSE STAFF Notified date and time: 03/22/17 at 0707
--- NOTE | 2017-03-22 07:34 | NUR ---
ASSUMED CARE AT THIS TIME, PT AWAKE AND ALERT, ABD PAIN 3/10 AT THIS TIME BUT DECLINES HER PRN PAIN MEDS. PT AWARE THAT SHE SHOULD LET THIS NURSE KNOW IF SHE CHANGES HER MIND. PT WAITING ON HER OB-SENIOR SUPPORT ANALYST TO COME TO EVALUATE HER. FLUIDS CONTINUE TO INFUSE , PT PT AWARE THAT SHE IS TO REMAIN NPO
--- NOTE | 2017-03-22 07:44 | NUR ---
PT MEDICATED WITH HER 0800 CLONIDINE AT THIS TIME
--- NOTE | 2017-03-22 07:59 | NUR ---
HCT OF 35.[address] BURRELL ON PHONE WITH HIM AT THIS TIME
--- NOTE | 2017-03-22 08:32 | NUR ---
PT DISCHARGED HOME AND HAS APPOINTMENT TO FOLLOW UP WITH OB-EDUCATION SALES CONSULTANT AT 1100 THIS AM.
[2017-03-22 08:36] VITALS: BP 128/72
[2017-03-23] MEDS ORDERED: FLOVENT DISKU100 MCG INH (10:50)
[2017-03-23] MEDS ORDERED: ALBUTEROL0.63 MG/1 INH/SOL (10:50)
[2017-03-23] MEDS ORDERED: PROTONIX40 M3 PO (10:51)
[2017-03-23] MEDS ORDERED: SERTRALINE HCL100 MG PO (10:51)
== END 2017-03-22 12:30 ==
LOC: ERH 16:46 → ERHI 23:45 → ENRESERV 03-22 01:15 → ERHI 03-22 08:38 → CMPBEDREQ 03-22 12:30
PROVIDERS: Obstetrics & Gynecology; ADMIT Obstetrics & Gynecology
DX: R10.2 Pelvic and perineal pain (principal); J45.909 Unspecified asthma, uncomplicated; M79.7 Fibromyalgia; F32.9 Major depressive disorder, single episode, unspecified; F41.9 Anxiety disorder, unspecified; Z86.73 Personal history of transient ischemic attack (TIA), and cerebral infarction without residual deficits
CPT/HCPCS: 6090; 96374; 96375; 96376; G0378; J1885; J2405

== ENCOUNTER 2018-01-09 07:22 | Emergency (ER) | payer OTHER ==
[~2018-01-09] VITALS: Ht 162.6 cm; Wt 67.6 kg
[~2018-01-09 07:22] MED LIST changes: +ALBUTEROL0.63 MG/1 INH/SOL; +DILAUDID2 M1 PO; +FLOVENT DISKU100 MCG INH; +HYDROCODON-ACE1 EAC2 PO; +IBUPROFEN800 M1 PO; +ONDANSETRON ODT4 M1 PO; +PROTONIX40 M3 PO
--- NOTE | 2018-01-09 07:37 | ED GENERAL ADULT ---
History of Present Illness General Chief Complaint: General Adult Stated Complaint: GAYLE/ABD PAIN +N Source: patient Exam Limitations: no limitations Vital Signs & Intake/Output Vital Signs & Intake/Output Vital Signs Date Time Temp Pulse Resp B/P B/P Pulse O2 O2 Flow FiO2 Mean Ox Delivery Rate 01/09 0908 100.0 69 18 122/79 96 Room Air 01/09 0837 Room Air 01/09 0727 97.1 86 15 112/76 98 Room Air Room Air Allergies Coded Allergies: Penicillins (Intermediate, RASH/HIVES 01/09/18) latex (ITCHING 01/09/18) Reconcile Medications Albuterol Sulfate 0.63 MG/3 ML VIAL.NEB 1 Vial INH/MARLA 4 TIMES/DAY PRN ASTHMA (Reported) Aspirin (Adult Low Dose Aspirin EC) 81 MG TABLET.DR 1 TAB PO DAILY HEART HEALTH (Reported) Fluticasone Propionate (Flovent Diskus) 100 MCG BLST.W.DEV 1 PUF INH BID ASTHMA (Reported) Hydrocodone/Acetaminophen (Hydrocodon-Acetaminophen 5-325) 5 MG-325 MG TABLET 1 TAB PO Q4P PRN ABDOMINAL PAIN Ibuprofen 800 MG TABLET 800 MG PO Q6P PRN PAIN SCALE 1-3 (MILD) Ondansetron (Ondansetron Odt) 4 MG TAB.RAPDIS 4 MG PO Q6-PRN PRN NAUSEA/ VOMITING Pantoprazole Sodium (Protonix) 40 MG TABLET.DR 1 TAB PO DAILY PRN GERD ( Reported) Rivaroxaban (Xarelto) 20 MG TABLET 1 TAB PO DAILY BLOOD THINNER (Reported) with food Triage Note: PT TO ED FOR C/C OF DIFFUSE ABD PAIN AND NAUSEA. DENIES DIARRHEA OR VOMITING. Triage Nurses Notes Reviewed? yes Onset: Abrupt Duration: day(s): Timing: recent history : No Patient currently breastfeeds: No HPI: 01/09/18 6 pm 42-year-old female presents to the emergency department complaining of headache, nausea, malaise, and mild nasal congestion. She says that she has a past medical history of fibromyalgia, a congenital heart defect. She also states that she does not nor has ever required prophylactic antibiotics for dental or other procedures. 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 Her past surgical history is significant for myomectomy and tubal ligation. Past History Travel History Traveled to [place] past 21 day No Medical History Any Pertinent Medical History? 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 No Review of Systems Review of Systems Constitutional: Denies: fever. EENTM: Reports: nasal congestion. Respiratory: Reports: cough. Denies: short of breath. Cardiovascular: Denies: chest pain. GI: Denies: abdominal pain. Genitourinary: Reports: no symptoms. Musculoskeletal: Reports: muscle pain. Skin: Denies: rash. Neurological/Psychological: Reports: headache. Hematologic/Endocrine: Denies: bruising, bleeding. Immunologic/Allergic: Reports: no symptoms. Physical Exam Physical Exam General Appearance: well developed/nourished, alert, awake, anxious, mild distress Head: atraumatic, normal appearance Eyes: Bilateral: normal appearance, PERRL, EOMI. Ears, Nose, Throat: normal pharynx, normal ENT inspection, hearing grossly normal Neck: normal inspection, supple, full range of motion Respiratory: normal breath sounds, chest non-tender, no respiratory distress Cardiovascular: regular rate/rhythm, no murmur Peripheral Pulses: 4+ radial (R), 4+ radial (L) Gastrointestinal: soft, non-tender Back: normal range of motion Extremities: normal inspection, normal range of motion Neurologic/Psych: no motor/sensory deficits, awake, alert, oriented x 3 Skin: intact, normal color, warm/dry Core Measures ACS in differential dx? No CVA/TIA Diagnosis: No Sepsis Present: No Sepsis Focused Exam Completed? No Progress Differential Diagnoses I considered the following diagnoses in my evaluation of the patient: [Influenza , viral syndrome, pneumonia, bronchitis, meningitis, sinusitis] Plan of Care: Orders Procedure Date/time Status RAPID VIRAL INFLUENZA A 01/09 0737 Complete Microbiology 01/09 0802 NASOPHARYN: Influenza Virus A & B Rapid Smear - COMP Initial ED EKG: none Departure Departure Disposition: STILL A PATIENT Condition: Stable Clinical Impression Primary Impression: Viral syndrome Referrals: Tomás Guerra MD (PCP/Family) Departure Forms: Customer Survey General Discharge Information Comments The patient and her family member both have similar symptoms. They both tested negative for influenza. She will take Tylenol as needed for pain and follow-up with her doctor this week if not improved. Her neurological exam is completely normal. There is no focal weakness. There is no nuchal rigidity: Exam Brudzinski sign were negative. She had no photophobia and was in no distress. Critical Care Note Critical Care Note Critical Care Time: non-applicable
[2018-01-09 09:08] VITALS: BP 122/79
== END 2018-01-09 09:47 ==
LOC: ERH 07:22
DX: B34.9 Viral infection, unspecified (principal)
CPT/HCPCS: 87804; 87804-59

== ENCOUNTER 2018-07-14 06:48 | Emergency (ER) | payer OTHER ==
[~2018-07-14] VITALS: Ht 162.6 cm; Wt 69.9 kg
[2018-07-14 07:14] VITALS: BP 118/87
--- NOTE | 2018-07-14 07:56 | ED INFLUENZA/URI COMPLAINT ---
History of Present Illness General Chief Complaint: General Adult Stated Complaint: PT C/O " NOT FEELING WELL" WEAK,+N/+D Source: patient Exam Limitations: no limitations Vital Signs & Intake/Output Vital Signs & Intake/Output Vital Signs Date Time Temp Pulse Resp B/P B/P Pulse O2 O2 Flow FiO2 Mean Ox Delivery Rate 07/14 0714 98.4 93 18 118/87 98 Room Air Allergies Coded Allergies: Penicillins (Intermediate, RASH/HIVES 01/09/18) latex (ITCHING 01/09/18) Reconcile Medications Albuterol Sulfate 0.63 MG/3 ML VIAL.NEB 1 Vial INH/MARLA 4 TIMES/DAY PRN ASTHMA (Reported) Aspirin (Adult Low Dose Aspirin EC) 81 MG TABLET.DR 1 TAB PO DAILY HEART HEALTH (Reported) Fluticasone Propionate (Flovent Diskus) 100 MCG BLST.W.DEV 1 PUF INH BID ASTHMA (Reported) Hydrocodone/Acetaminophen (Hydrocodon-Acetaminophen 5-325) 5 MG-325 MG TABLET 1 TAB PO Q4P PRN ABDOMINAL PAIN Ibuprofen 800 MG TABLET 800 MG PO Q6P PRN PAIN SCALE 1-3 (MILD) Ondansetron (Ondansetron Odt) 4 MG TAB.RAPDIS 4 MG PO Q6-PRN PRN NAUSEA/ VOMITING Pantoprazole Sodium (Protonix) 40 MG TABLET.DR 1 TAB PO DAILY PRN GERD ( Reported) Rivaroxaban (Xarelto) 20 MG TABLET 1 TAB PO DAILY BLOOD THINNER (Reported) with food Triage Note: 42 YO FEMALE TO TRIAGE FOR EVAL OF RUNNY NOSE, FEELING WEAK AND +NAUSEA. DENIES ABD APIN. REPORTS HER SON WAS RECENTLY SICK AND FELS SHE CAUGHT IT. HAS BEEN TALING SUDAFED WITHOUT RELIEF. AFEBRILE. Triage Nurses Notes Reviewed? yes : No Patient currently breastfeeds: No HPI: Patient presents for evaluation of cold symptoms over the past 3 days. Symptoms worsened beginning yesterday. Today she felt dizzy, nauseous, weak with episode of diarrhea and a headache. Patient tried [id number] medications without improvement. Patient is also experiencing a thick yellow nasal drainage. Pts son dxed with sinusitis and finished tx a few days ago. she also c/o left ankle pain with certain movements with radiation to leg. the area is also slightly swollen (for one month). Past History Travel History Traveled to [place] past 21 day No Medical History Any Pertinent Medical History? see below for history Neurological: CVA (ischemic, 02/2016), FIBROMYALGIA EENT: NONE Cardiovascular: PFO Respiratory: asthma Gastrointestinal: NONE Hepatic: NONE Renal: NONE Musculoskeletal: chronic back pain Psychiatric: depression, ANXIETY Endocrine: NONE Blood Disorders: NONE Cancer(s): NONE KNOTTER/Reproductive: yeast infections, OVARIAN CYST utiS Other Medical Hx: Fibromyalgia History of MRSA: No History of VRE: No History of CDIFF: No Surgical History Surgical History: tubal ligation, laparoscopy LEEP D and c Novasure ablation ablation myomectomy Psychosocial History Who do you live with Family What is your primary language Portuguese Tobacco Use: Never used Family History Hx Contributory? No Review of Systems Review of Systems Constitutional: Reports: no symptoms. EENTM: Reports: see HPI. Respiratory: Reports: no symptoms. Cardiovascular: Reports: no symptoms. GI: Reports: no symptoms. Genitourinary: Reports: no symptoms. Musculoskeletal: Reports: see HPI. Skin: Reports: no symptoms. Neurological/Psychological: Reports: no symptoms. Hematologic/Endocrine: Reports: no symptoms. Immunologic/Allergic: Reports: no symptoms. All Other Systems: Reviewed and Negative Physical Exam Physical Exam Ears, Nose, Throat: see below Comments: Gen.: Well-nourished, well-developed, no acute respiratory distress. Head: Normocephalic, atraumatic. Eyes: Normal inspection bilaterally Ears: Normal inspection bilaterally Nose: Normal inspection Face: tender to percussion over maxillary sinuses and temples Throat/mouth : Moist mucosa , no pharyngeal erythema Neck: Supple, full range of motion, no goiter Heart: Regular rate and rhythm, soft systolic murmur present Lungs: Clear to auscultation bilaterally with normal air entry Chest: Nontender Back: Normal range of motion Abdomen: Soft, nontender, nondistended, normal bowel sounds, no organosplenomegaly Extremities: Normal range of motion grossly, equal radial pulses, no cyanosis clubbing or edema Neurologic: Cranial nerves grossly intact, speech is clear Skin: warm and dry Psychiatric: Calm, cooperative, no apparent delusions or hallucinations Lymphatic: No cervical lymphadenopathy Core Measures Sepsis Present: No Sepsis Focused Exam Completed? No Progress Differential Diagnosis: influenza, pneumonia, pharyngitis, sinusitis, viral syndrome Plan of Care: See discharge instructions Initial ED EKG: none Departure Departure Disposition: HOME OR SELF CARE Condition: Stable Clinical Impression Primary Impression: Viral syndrome Secondary Impressions: Sinusitis Qualifiers: Sinusitis location: maxillary Chronicity: acute Recurrence: not specified as recurrent Qualified Code: J01.00 - Acute maxillary sinusitis, unspecified Referrals: Tomás Guerra MD (PCP/Family) Additional Instructions: Drink lots of fluids. Azithromycin as prescribed. Bromfed as needed for cough or cold symptoms. Follow-up with your primary care physician if not improving over the next 5 days. Return if any concerns or sudden worsening. Thank you for choosing the [facility] for your care. It was a pleasure to serve you today. Salvador Buchanan M.D. [facility] Departure Forms: Customer Survey General Discharge Information Prescriptions: Current Visit Scripts Brompheniramine/Pseudoephed/Dm (Bromfed Dm Cough Syrup) 10 ML PO Q6P PRN COUGH/ COLD SYMPTOMS #240 ML Azithromycin (Zithromax) 1 DP PO AD #6 TAB 2 the first day followed by 1 for days 2-5
[2018-07-14] MEDS ORDERED: ZITHROMAX250 M2 PO (08:03)
[2018-07-14] MEDS ORDERED: BROMFED DM COU118 M1 PO (08:03)
[2018-07-14] MEDS ORDERED: GABAPENTIN600 M1 PO (08:05)
[2018-07-14] MEDS ORDERED: SEROQUEL25 M1 PO (08:05)
== END 2018-07-14 08:15 ==
LOC: ERH 06:48
DX: B34.9 Viral infection, unspecified (principal); J32.9 Chronic sinusitis, unspecified; R42 Dizziness and giddiness; R19.7 Diarrhea, unspecified; J45.909 Unspecified asthma, uncomplicated; Z79.82 Long term (current) use of aspirin; Z79.01 Long term (current) use of anticoagulants